=== PATIENT | male | born 1945 | race Two or more races ===

== ENCOUNTER 2021-06-29 00:10 | Inpatient (IN) ==
[2021-06-29 01:37] LABS: ABS Lymphocytes 0.6 10^3/ul (1.0-4.8); ABS Monocytes 0.2 10^3/ul (0-0.8); ABS Neutrophils 9.7 10^3/ul (1.5-7.7); Eosinophil % 0.1 %; Hematocrit 38 % (42-52); Hemoglobin 13.6 g/dL (14.0-18.0); Lymphocyte % 5.7 %; Mean Corpuscular HGB Conc 36 g/dL (31-36); Mean Corpuscular Hemoglobin 31 pg (27-31); Mean Corpuscular Volume 87 fL (80-94); Mean Platelet Volume 8.4 fL (7.4-10.4); Platelet Count 235 10^3/uL (150-450); Red Cell Distribution Width 13 % (10-15); White Blood Count 10.6 10^3/uL (3.5-10.8)
[2021-06-29 01:49] LABS: Albumin 4.2 g/dL (3.2-5.2); Calcium 9.3 mg/dL (8.6-10.3); Direct Bilirubin 0.2 mg/dL (0.03-0.18); Indirect Bilirubin 1.7 mg/dL (0.3-1.0); Total Bilirubin 1.9 mg/dL (0.2-1.0)
[2021-06-29 01:55] LABS: Albumin/Globulin Ratio 1.4 (1-3); EGFR African American 118.9 (>60); EGFR Non-African American 98.2 (>60); Globulin 2.9 g/dL (2-4); Total Protein 7.1 g/dL (6.4-8.9)
[2021-06-29 02:00] LABS: Activated Partial Thrombo Time 33.3 seconds (26.0-38.0); INR 1.1 (0.86-1.15)
[2021-06-29] MEDS ORDERED: Ondansetron 4 mg VIAL 2 MG/ML 2 ml VIAL IV ONE (02:05)
[2021-06-29] MEDS ORDERED: fentaNYL 100 mcg/2 ml 50 MCG/ML VIAL IV SLOW PU ONE ×2 (02:05→02:45)
[2021-06-29] MEDS ORDERED: Lactated Ringers 1000 ml BAG 1,000 ML IV ONE (02:05)
[2021-06-29] MEDS ORDERED: Iohexol 300 (CONTRAST) 10 ML SDV IV ONE (02:42)
[2021-06-29] MEDS ORDERED: HYDROmorphone 0.5 MG/0.5 ML SYRINGE IV SLOW PU ONE (03:03)
[2021-06-29] MEDS ORDERED: HYDROmorphone 1 MG/1 ML SYRINGE IV ONE ×2 (04:17→05:35)
[2021-06-29 07:21] LABS: Rapid COVID-19 Molecular Undetected (Undetected)
[2021-06-29] MEDS ORDERED: Bupivacaine 0.25% SDV 30 ML ONE (07:23)
[2021-06-29] MEDS ORDERED: Lidocaine 2% PF 5 ML VIAL ONE (08:29)
[2021-06-29] MEDS ORDERED: Rocuronium 50 mg VIAL 10 mg/ml 5 ml VIAL (50 mg) ONE ×2 (08:29→10:13)
[2021-06-29] MEDS ORDERED: Succinylcholine 200 mg VIAL 20 mg/ml 10 ml VIAL (200 mg) ONE (08:29)
[2021-06-29] MEDS ORDERED: ceFAZolin 2 GM in NS PREMIX 2 GM/100 ML BAG IVPB ONE (08:29)
[2021-06-29] MEDS ORDERED: Propofol 10 MG/ML 20 ML BTL ONE (08:29)
[2021-06-29] MEDS ORDERED: Midazolam 2 mg/2 ml VIAL 1 mg/ml 2 ml VIAL (2 mg) ONE (08:30)
[2021-06-29] MEDS ORDERED: fentaNYL 100 mcg/2 ml 50 MCG/ML VIAL ONE ×2 (08:30→13:05)
[2021-06-29] MEDS ORDERED: DiMENhydriNATE IV 50 mg/ml 1 ml VIAL IV PUSH PRN (08:52)
[2021-06-29] MEDS ORDERED: Naloxone 0.4 mg VIAL 0.4 mg/ml 1 ml VIAL IV PRN ×2 (08:52→13:16)
[2021-06-29] MEDS ORDERED: Ondansetron 4 mg VIAL 2 MG/ML 2 ml VIAL ONE (09:36)
[2021-06-29] MEDS ORDERED: Dexamethasone IV 4 MG/ML VIAL 1 ml VIAL ONE (09:36)
[2021-06-29] MEDS ORDERED: HYDROmorphone 1 MG/1 ML SYRINGE ONE ×2 (10:20→13:05)
[2021-06-29] MEDS ORDERED: Phenylephrine 40 mcg/mL 10mL (400mcg) SYRINGE ONE (10:58)
[2021-06-29] MEDS ORDERED: Ondansetron 4 mg VIAL 2 MG/ML 2 ml VIAL IV PRN ×2 (12:11→13:14)
[2021-06-29] MEDS ORDERED: Naloxone 0.4 mg VIAL 0.4 mg/ml 1 ml VIAL IV PUSH PRN ×2 (12:18→13:14)
[2021-06-29] MEDS: HYDROmorphone PCA 20 MG/20 ML PCA.SYRING PCA SCH (13:00)
[2021-06-29] MEDS: fentaNYL 100 mcg/2 ml 50 MCG/ML VIAL IV PRN ×4 (13:00→13:18)
[2021-06-29] MEDS ORDERED: Lactated Ringers 1000 ml BAG 1,000 ML IV SCH (13:00)
[2021-06-29] MEDS ORDERED: HYDROmorphone 1 MG/1 ML SYRINGE IV PRN (13:14)
[2021-06-29] MEDS: HYDROmorphone 1 MG/1 ML SYRINGE IV PRN ×2 (13:24→13:36)
[2021-06-29] MEDS ORDERED: Acetaminophen IV 1 GM/100ML 100 ML IV ONE (13:38)
[2021-06-29] MEDS: Pantoprazole VIAL 40 MG VIAL IV SCH (15:50)
[2021-06-29] MEDS ORDERED: Pantoprazole VIAL 40 MG VIAL IV SCH (16:00)
[2021-06-29] MEDS: Lactated Ringers 1000 ml BAG 1,000 ML IV SCH (19:04)
[2021-06-29] MEDS: Heparin 5000 UNITS/ML 1 mL VIAL SUBCUT SCH (21:46)
[2021-06-29] MEDS ORDERED: Heparin 5000 UNITS/ML 1 mL VIAL SUBCUT SCH (22:00)
[2021-06-30] MEDS: Pantoprazole VIAL 40 MG VIAL IV SCH (04:49)
[2021-06-30] MEDS: Lactated Ringers 1000 ml BAG 1,000 ML IV SCH ×2 (05:07→14:26)
[2021-06-30] MEDS: Heparin 5000 UNITS/ML 1 mL VIAL SUBCUT SCH ×3 (05:07→21:07)
[2021-06-30 06:08] LABS: ABS Lymphocytes 0.6 10^3/ul (1.0-4.8); ABS Monocytes 0.7 10^3/ul (0-0.8); ABS Neutrophils 10.4 10^3/ul (1.5-7.7); Hematocrit 34 % (42-52); Mean Corpuscular HGB Conc 35 g/dL (31-36); Mean Corpuscular Hemoglobin 31 pg (27-31); Mean Corpuscular Volume 88 fL (80-94); Mean Platelet Volume 8.2 fL (7.4-10.4); Platelet Count 164 10^3/uL (150-450); Red Blood Count 3.89 10^6 /uL (4.18-5.48); Red Cell Distribution Width 13 % (10-15); White Blood Count 11.7 10^3/uL (3.5-10.8)
[2021-06-30 06:25] LABS: Calcium 7.9 mg/dL (8.6-10.3); EGFR African American 128.4 (>60); EGFR Non-African American 106.1 (>60); Potassium 4.1 mmol/L (3.5-5.0)
[2021-06-30] MEDS ORDERED: Benzocaine/Menthol LOZ MT PRN (11:24)
[2021-06-30] MEDS ORDERED: Lactated Ringers 1000 ml BAG 500 ML IV ONE (22:25)
[2021-07-01] MEDS: Lactated Ringers 1000 ml BAG 1,000 ML IV SCH ×2 (05:34→18:10)
[2021-07-01] MEDS: Heparin 5000 UNITS/ML 1 mL VIAL SUBCUT SCH ×3 (06:05→22:41)
[2021-07-02] MEDS: Lactated Ringers 1000 ml BAG 1,000 ML IV SCH ×2 (04:01→15:31)
[2021-07-02] MEDS: Heparin 5000 UNITS/ML 1 mL VIAL SUBCUT SCH ×3 (05:54→22:25)
[2021-07-02 09:33] LABS: Hematocrit 36 % (42-52); Hemoglobin 12.7 g/dL (14.0-18.0); Mean Corpuscular HGB Conc 36 g/dL (31-36); Mean Corpuscular Hemoglobin 31 pg (27-31); Mean Corpuscular Volume 87 fL (80-94); Mean Platelet Volume 8.6 fL (7.4-10.4); Platelet Count 198 10^3/uL (150-450); Red Blood Count 4.11 10^6 /uL (4.18-5.48); Red Cell Distribution Width 13 % (10-15); White Blood Count 10.4 10^3/uL (3.5-10.8)
[2021-07-02 09:50] LABS: Calcium 7.8 mg/dL (8.6-10.3); EGFR African American 175.2 (>60); EGFR Non-African American 144.8 (>60); Potassium 3.6 mmol/L (3.5-5.0)
[2021-07-02 10:44] LABS: ABS Lymphocytes 0.2 10^3/ul (1.0-4.8); ABS Monocytes 0.6 10^3/ul (0-0.8); ABS Neutrophils 9.6 10^3/ul (1.5-7.7)
[2021-07-02] MEDS: HYDROmorphone PCA 20 MG/20 ML PCA.SYRING PCA SCH (15:22)
[2021-07-02] MEDS ORDERED: HYDROmorphone 0.5 MG/0.5 ML SYRINGE IV SLOW PU PRN (23:44)
[2021-07-03] MEDS: Lactated Ringers 1000 ml BAG 1,000 ML IV SCH (01:39)
[2021-07-03] MEDS: Heparin 5000 UNITS/ML 1 mL VIAL SUBCUT SCH ×3 (07:15→21:51)
[2021-07-03] MEDS ORDERED: Pneumococcal Vac 23-Polyvalent IM ONE (09:00)
[2021-07-04] MEDS: Heparin 5000 UNITS/ML 1 mL VIAL SUBCUT SCH ×3 (06:40→22:13)
[2021-07-05] MEDS: Heparin 5000 UNITS/ML 1 mL VIAL SUBCUT SCH ×3 (06:16→21:02)
[2021-07-05] MEDS ORDERED: Magnesium Hydroxide LIQ 30 ML UDC PO PRN (08:54)
[2021-07-06] MEDS: Heparin 5000 UNITS/ML 1 mL VIAL SUBCUT SCH (05:39)
[2021-07-06 07:55] VITALS: BP 139/56
== END 2021-07-06 11:30 | disposition home health service (06) | DRG 330 ==
LOC: ED 00:10 → SDS 13:06 → SSU 13:12
PROVIDERS: ADMIT Surgery; ATTEND Surgery